=== PATIENT | male | born 1945 | race Caucasian/White ===

== ENCOUNTER 2018-03-29 00:41 | Emergency (ER) | payer MEDICARE ==
[~2018-03-29] VITALS: Ht 177.8 cm; Wt 106.6 kg
[~2018-03-29 00:41] MED LIST: ALLO100 PO; FENO160 PO; METF500 PO; METO25; Prinivil10 MG PO; SERT50 PO; SIMV40 PO; WARF5 PO
[2018-03-29] MEDS ORDERED: OLAN5 PO (01:50)
[2018-03-29] MEDS ORDERED: ATOR20 PO (01:51)
[2018-03-29] MEDS ORDERED: VENL75ER PO (01:51)
[2018-03-29] MEDS ORDERED: METF500C PO (01:52)
[2018-03-29] MEDS ORDERED: WARF5 PO (01:53)
[2018-03-29] MEDS ORDERED: METO25 (01:54)
== END 2018-03-29 02:12 | disposition home or self-care (01) ==
LOC: ER 00:41
DX: S70.11XA Contusion of right thigh, initial encounter (principal); S80.11XA Contusion of right lower leg, initial encounter; E11.9 Type 2 diabetes mellitus without complications; I48.91 Unspecified atrial fibrillation; I10 Essential (primary) hypertension; Z88.0 Allergy status to penicillin; Z88.6 Allergy status to analgesic agent; Z88.8 Allergy status to other drugs, medicaments and biological substances; Z79.899 Other long term (current) drug therapy; Z79.84 Long term (current) use of oral hypoglycemic drugs; Z79.01 Long term (current) use of anticoagulants; Z86.73 Personal history of transient ischemic attack (TIA), and cerebral infarction without residual deficits; W01.0XXA Fall on same level from slipping, tripping and stumbling without subsequent striking against object, initial encounter
CPT/HCPCS: 99282

== ENCOUNTER 2018-11-20 14:51 | Observation (INO) | payer MEDICARE ==
[~2018-11-20] VITALS: Ht 177.8 cm; Wt 106.6 kg
[~2018-11-20 14:51] MED LIST changes: +ATOR20 PO; +METF500C PO; +OLAN7.5 PO; +VENL150ER PO
[2018-11-20] MEDS ORDERED: GLIM2 PO (15:22)
[2018-11-20 15:31] LABS: BASOPHILS ABSOLUTE AUTO 0.03 K/mm3 (0.00-0.23); BASOPHILS PERCENT AUTO 0 % (0-2); EOSINOPHILS ABSOLUTE AUTO 0.13 K/mm3 (0.00-0.68); EOSINOPHILS PERCENT AUTO 2 % (0-6); Hematocrit 48.3 % (37.0-53.0); Hemoglobin 15.8 g/dL (13.5-17.5); IMMATURE GRAN ABSOLUTE AUTO 0.02 K/mm3 (0.00-0.10); IMMATURE GRAN PERCENT AUTO 0 % (0-1); LYMPHOCYTES ABSOLUTE AUTO 1.12 K/mm3 (0.84-5.20); LYMPHOCYTES PERCENT AUTO 15 % (21-46); MONOCYTES ABSOLUTE AUTO 0.58 K/mm3 (0.16-1.47); MONOCYTES PERCENT AUTO 8 % (4-13); Mean Corpuscular HGB 30.9 pg (26.0-34.0); Mean Corpuscular HGB Conc 32.7 g/dL (31.5-36.5); Mean Corpuscular Volume 95 fL (80-100); NEUTROPHILS ABSOLUTE AUTO 5.68 K/mm3 (1.96-9.15); NEUTROPHILS PERCENT AUTO 75 % (41-73); Platelet Count 198 K/mm3 (150-400); RDW Standard Deviation 45.5 fL (35.1-46.3); Red Blood Cell Count 5.11 M/mm3 (4.30-5.90); White Blood Cell Count 7.56 K/mm3 (4.00-11.30)
[2018-11-20 15:58] LABS: Alanine Aminotransfer (ALT/SGP 33 U/L (12-78); Albumin, Blood 3.8 g/dL (3.4-5.0); Albumin/Globulin Ratio 1.2 (0.8-1.8); Alk Phos 86 U/L (50-136); Anion Gap 6 mmol/L (6-16); Aspartate Aminotrans (AST/SGOT 18 U/L (12-37); Bilirubin, Total 0.7 mg/dL (0.1-1.0); Blood Urea Nitrogen 17 mg/dL (8-24); Bun/Creatinine Ratio 33.3 (12.0-20.0); CO2, Blood 33 mmol/L (21-32); Calcium, Blood 9.2 mg/dL (8.5-10.1); Chloride, Blood 104 mmol/L (98-108); Creatinine, Blood 0.51 mg/dL (0.60-1.20); Globulin, Blood 3.2 g/dL (2.2-4.0); Glomerular Filtration Rate >60 (60-); Glucose, Blood 231 mg/dL (70-99); Potassium, Blood 3.9 mmol/L (3.5-5.5); Sodium, Blood 143 mmol/L (136-145); Troponin I <0.015 ng/mL (0.000-0.040)
[2018-11-20 16:15] LABS: International Normalized Ratio 1.96; Prothrombin Time Results 19.5 Sec (9.7-11.5)
[2018-11-20] MEDS ORDERED: DONEPEZIL HCL5 M1 PO (16:56)
[2018-11-20] MEDS ORDERED: GLIM4 PO (16:59)
[2018-11-20] MEDS ORDERED: WARF1 PO (17:20)
[2018-11-20] MEDS ORDERED: METO25 PO (17:25)
[2018-11-20] MEDS ORDERED: FISH OIL 1,001000 MG PO (17:47)
[2018-11-20] MEDS ORDERED: ASCO500 PO (17:48)
[2018-11-20] MEDS ORDERED: ACETAMINOPHEN500 MG PO (17:48)
[2018-11-20] MEDS ORDERED: CHOL10002 PO (17:52)
[2018-11-20] MEDS ORDERED: SENN187 PO (18:00)
[2018-11-20] MEDS ORDERED: CYAN500 PO (18:03)
[2018-11-21 03:27] LABS: International Normalized Ratio 2.07; Prothrombin Time Results 20.5 Sec (9.7-11.5)
[2018-11-21] MEDS ORDERED: CLOP75 PO (12:19)
== END 2018-11-21 12:57 | disposition home or self-care (01) ==
LOC: ER 14:51 → MEDS 14:52 → ENPENDDIS 11-21 11:56 → MEDS 11-21 12:57
PROVIDERS: Nurse Practitioner Acute Care; Physician Assistant; ADMIT Family Medicine
DX: R07.9 Chest pain, unspecified (principal); I48.2 Chronic atrial fibrillation; E11.9 Type 2 diabetes mellitus without complications; F02.80 Dementia in other diseases classified elsewhere, unspecified severity, without behavioral disturbance, psychotic disturbance, mood disturbance, and anxiety; I10 Essential (primary) hypertension; G30.9 Alzheimer's disease, unspecified; F32.9 Major depressive disorder, single episode, unspecified; M10.9 Gout, unspecified; Z88.8 Allergy status to other drugs, medicaments and biological substances; Z86.73 Personal history of transient ischemic attack (TIA), and cerebral infarction without residual deficits; Z79.899 Other long term (current) drug therapy; Z88.6 Allergy status to analgesic agent; Z88.0 Allergy status to penicillin
CPT/HCPCS: 36415; 71046; 80053; 82947; 83735; 84484; 85025; 85610; 93005; 93010; 99285-25; G0378; J7030

== ENCOUNTER 2018-11-28 14:28 | Observation (INO) | payer MEDICARE ==
[~2018-11-28] VITALS: Ht 165.1 cm; Wt 99.3 kg
[~2018-11-28 14:28] MED LIST changes: +ACETAMINOPHEN500 MG PO; +ASCO500 PO; +CHOL10002 PO; +CLOP75 PO; +CYAN500 PO; +DONEPEZIL HCL5 M1 PO; +FISH OIL 1,001000 MG PO; +GLIM2 PO; +GLIM4 PO; +METO25 PO; +SENN187 PO; +WARF1 PO
[2018-11-28] MEDS ORDERED: ATOR20 PO (14:33)
[2018-11-28] MEDS ORDERED: ALLO100 PO (14:33)
[2018-11-28] MEDS ORDERED: Prinivil10 MG PO (14:33)
[2018-11-28] MEDS ORDERED: METFORMIN HCL500 MG PO (14:34)
[2018-11-28] MEDS ORDERED: METO25 PO (14:36)
[2018-11-28] MEDS ORDERED: Jantoven1 MG PO (14:36)
[2018-11-28] MEDS ORDERED: Jantoven5 MG PO (14:36)
[2018-11-28] MEDS ORDERED: GLIM2 PO ×3 (14:37→20:54)
[2018-11-28] MEDS ORDERED: OLAN7.5 PO (14:38)
[2018-11-28] MEDS ORDERED: VENL150ER PO (14:38)
[2018-11-28] MEDS ORDERED: CHOL10002 PO (14:39)
[2018-11-28] MEDS ORDERED: VITAMIN C500 M1 PO (14:40)
[2018-11-28] MEDS ORDERED: VITAMIN B122500 MCG PO (14:40)
[2018-11-28] MEDS ORDERED: FIBER GUMMIES2 GM PO (14:41)
[2018-11-28] MEDS ORDERED: GNP STOOL SOFT PO (14:42)
[2018-11-28] MEDS ORDERED: FISH OIL 1,2001 EACH PO (14:42)
[2018-11-28] MEDS ORDERED: ASPI81CH PO (15:19)
[2018-11-28] MEDS ORDERED: DONE5 PO (15:19)
[2018-11-28 16:09] LABS: BASOPHILS ABSOLUTE AUTO 0.02 K/mm3 (0.00-0.23); BASOPHILS PERCENT AUTO 0 % (0-2); EOSINOPHILS ABSOLUTE AUTO 0.12 K/mm3 (0.00-0.68); EOSINOPHILS PERCENT AUTO 2 % (0-6); Hematocrit 44.4 % (37.0-53.0); Hemoglobin 14.7 g/dL (13.5-17.5); IMMATURE GRAN ABSOLUTE AUTO 0.01 K/mm3 (0.00-0.10); IMMATURE GRAN PERCENT AUTO 0 % (0-1); LYMPHOCYTES ABSOLUTE AUTO 0.82 K/mm3 (0.84-5.20); LYMPHOCYTES PERCENT AUTO 13 % (21-46); MONOCYTES ABSOLUTE AUTO 0.54 K/mm3 (0.16-1.47); MONOCYTES PERCENT AUTO 9 % (4-13); Mean Corpuscular HGB 30.9 pg (26.0-34.0); Mean Corpuscular HGB Conc 33.1 g/dL (31.5-36.5); Mean Corpuscular Volume 94 fL (80-100); Mean Platelet Volume 10.1 fL (9.1-12.4); NEUTROPHILS ABSOLUTE AUTO 4.85 K/mm3 (1.96-9.15); NEUTROPHILS PERCENT AUTO 76 % (41-73); Platelet Count 191 K/mm3 (150-400); RDW Coefficient Variation 12.8 % (11.7-14.2); RDW Standard Deviation 44.4 fL (35.1-46.3); Red Blood Cell Count 4.75 M/mm3 (4.30-5.90); White Blood Cell Count 6.36 K/mm3 (4.00-11.30)
[2018-11-28 16:37] LABS: Alanine Aminotransfer (ALT/SGP 34 U/L (12-78); Albumin, Blood 3.5 g/dL (3.4-5.0); Albumin/Globulin Ratio 1.1 (0.8-1.8); Alk Phos 78 U/L (50-136); Anion Gap 6 mmol/L (6-16); Aspartate Aminotrans (AST/SGOT 24 U/L (12-37); Bilirubin, Total 0.4 mg/dL (0.1-1.0); Blood Urea Nitrogen 20 mg/dL (8-24); Bun/Creatinine Ratio 45.4 (12.0-20.0); CO2, Blood 30 mmol/L (21-32); Calcium, Blood 9.2 mg/dL (8.5-10.1); Chloride, Blood 106 mmol/L (98-108); Creatinine, Blood 0.44 mg/dL (0.60-1.20); Ethanol (Alcohol), Blood, Med <3 mg/dL; Globulin, Blood 3.1 g/dL (2.2-4.0); Glomerular Filtration Rate >60 (60-); Glucose, Blood 180 mg/dL (70-99); Potassium, Blood 3.7 mmol/L (3.5-5.5); Salicylate <1.7 mg/dL (2.8-20.0); Sodium, Blood 142 mmol/L (136-145); Total Protein, Blood 6.6 g/dL (6.4-8.2)
[2018-11-28 16:41] LABS: Acetaminophen, Random <2.0 ug/mL (10.0-30.0)
[2018-11-28 17:44] LABS: Source, Urine Catheter
[2018-11-28 17:53] LABS: Appearance, Urine Clear (Clear); Bilirubin, Urine Neg (Neg); Blood, Urine 2+ (Neg); Color, Urine Yellow (P-Yellow); Glucose Qualitative, Urine 4+ (Neg); Ketones, Urine 1+ (Neg); Leukocyte Esterase, Urine 1+ (Neg); Nitrite, Urine Neg (Neg); Protein, Urine 3+ (Neg); Urobilinogen, Urine 2+ (Normal)
[2018-11-28 18:08] LABS: Amorphous Light (0-Heavy); Bacteria Not Seen /hpf; Mucus Mod (0-Heavy); Squamous Epithelial Cells Rare /hpf (Few)
[2018-11-28 18:35] LABS: U Amphetamine Screen Not Detected; U Barbituate Screen Not Detected; U Benzodiazapine Screen Not Detected; U Cannabinoids Screen Not Detected; U Cocaine Screen Not Detected; U Methadone Screen Not Detected; U Methamphetamine Screen Not Detected; U Opiates Screen Not Detected; U Phencyclidine Screen Not Detected
[2018-11-28 18:36] LABS: U Buprenorphine Screen Not Detected; U Oxycodone Screen Not Detected; U Propoxyphene Screen Not Detected
[2018-11-29 16:37] LABS: International Normalized Ratio 1.37; Prothrombin Time Results 14.1 Sec (9.7-11.5)
[2018-12-01 13:07] LABS: International Normalized Ratio 1.48; Prothrombin Time Results 15.1 Sec (9.7-11.5)
[2018-12-02 11:06] LABS: International Normalized Ratio 1.58; Prothrombin Time Results 16.1 Sec (9.7-11.5)
[2018-12-03 05:51] LABS: International Normalized Ratio 1.62; Prothrombin Time Results 16.4 Sec (9.7-11.5)
[2018-12-03 16:21] LABS: BASOPHILS ABSOLUTE AUTO 0.04 K/mm3 (0.00-0.23); BASOPHILS PERCENT AUTO 1 % (0-2); EOSINOPHILS ABSOLUTE AUTO 0.32 K/mm3 (0.00-0.68); EOSINOPHILS PERCENT AUTO 4 % (0-6); Hematocrit 45.3 % (37.0-53.0); IMMATURE GRAN ABSOLUTE AUTO 0.03 K/mm3 (0.00-0.10); IMMATURE GRAN PERCENT AUTO 0 % (0-1); LYMPHOCYTES ABSOLUTE AUTO 1.38 K/mm3 (0.84-5.20); LYMPHOCYTES PERCENT AUTO 17 % (21-46); MONOCYTES ABSOLUTE AUTO 0.84 K/mm3 (0.16-1.47); MONOCYTES PERCENT AUTO 10 % (4-13); Mean Corpuscular HGB 31.4 pg (26.0-34.0); Mean Corpuscular HGB Conc 33.1 g/dL (31.5-36.5); Mean Corpuscular Volume 95 fL (80-100); Mean Platelet Volume 9.8 fL (9.1-12.4); NEUTROPHILS ABSOLUTE AUTO 5.49 K/mm3 (1.96-9.15); NEUTROPHILS PERCENT AUTO 68 % (41-73); Platelet Count 196 K/mm3 (150-400); RDW Coefficient Variation 12.8 % (11.7-14.2); RDW Standard Deviation 44.5 fL (35.1-46.3); Red Blood Cell Count 4.77 M/mm3 (4.30-5.90)
[2018-12-03 16:39] LABS: Alanine Aminotransfer (ALT/SGP 31 U/L (12-78); Albumin, Blood 3.3 g/dL (3.4-5.0); Alk Phos 78 U/L (50-136); Anion Gap 3 mmol/L (6-16); Aspartate Aminotrans (AST/SGOT 28 U/L (12-37); Bilirubin, Total 0.6 mg/dL (0.1-1.0); Blood Urea Nitrogen 13 mg/dL (8-24); CO2, Blood 33 mmol/L (21-32); CPK Creatine Kinase 120 U/L (39-308); Calcium, Blood 9.4 mg/dL (8.5-10.1); Chloride, Blood 105 mmol/L (98-108); Creatinine, Blood 0.54 mg/dL (0.60-1.20); Globulin, Blood 3.4 g/dL (2.2-4.0); Glomerular Filtration Rate >60 (60-); Glucose, Blood 183 mg/dL (70-99); Potassium, Blood 4.3 mmol/L (3.5-5.5); Sodium, Blood 141 mmol/L (136-145); Total Protein, Blood 6.7 g/dL (6.4-8.2)
[2018-12-03 16:49] LABS: Bicarbonate Venous 30.4 mmol/L (24.0-30.0); PCO2 Venous 56.6 mmHg (38-42); PO2 Venous 50.5 mmHg (38-42); pH Blood Venous 7.39 (7.34-7.37)
--- NOTE | 2018-12-03 19:16 | NUR ---
SHIFT SUMMARY ED ADMIT AT DINNERTIME. PATIENT AND FAMILY ORIENTED TO ROOM. PATIENT DENIES NAUSEA AND SHORTNESS OF BREATH, TYLENOL GIVEN FOR PAIN IN FOOT. PATIENT DROWSY AND NEEDS PROMPTING TO EAT OR TAKE MEDICATION. REPORT GIVEN TO BEVERLY FERNANDEZ.
[2018-12-04 05:02] LABS: BASOPHILS ABSOLUTE AUTO 0.04 K/mm3 (0.00-0.23); BASOPHILS PERCENT AUTO 1 % (0-2); EOSINOPHILS PERCENT AUTO 6 % (0-6); Hematocrit 46.1 % (37.0-53.0); Hemoglobin 15.1 g/dL (13.5-17.5); IMMATURE GRAN ABSOLUTE AUTO 0.02 K/mm3 (0.00-0.10); IMMATURE GRAN PERCENT AUTO 0 % (0-1); LYMPHOCYTES ABSOLUTE AUTO 1.29 K/mm3 (0.84-5.20); LYMPHOCYTES PERCENT AUTO 19 % (21-46); MONOCYTES ABSOLUTE AUTO 0.79 K/mm3 (0.16-1.47); MONOCYTES PERCENT AUTO 12 % (4-13); Mean Corpuscular HGB 30.9 pg (26.0-34.0); Mean Corpuscular HGB Conc 32.8 g/dL (31.5-36.5); Mean Corpuscular Volume 94 fL (80-100); Mean Platelet Volume 9.4 fL (9.1-12.4); NEUTROPHILS ABSOLUTE AUTO 4.23 K/mm3 (1.96-9.15); NEUTROPHILS PERCENT AUTO 62 % (41-73); Platelet Count 186 K/mm3 (150-400); RDW Coefficient Variation 12.8 % (11.7-14.2); RDW Standard Deviation 43.8 fL (35.1-46.3); Red Blood Cell Count 4.89 M/mm3 (4.30-5.90); White Blood Cell Count 6.77 K/mm3 (4.00-11.30)
[2018-12-04 05:15] LABS: International Normalized Ratio 1.59; Prothrombin Time Results 16.2 Sec (9.7-11.5)
--- NOTE | 2018-12-04 05:21 | NUR ---
SHIFT SUMMARY PT COMBATIVE, AGITATED, AND TRYING TO GET UP OUT OF BED AT BEGINNING OF SHIFT. PT STRIKING OUT AND KICKING AT STAFF, SWINGING LEGS OVER THE SIDE RAILS. PT HIT DIRECTOR OF GIFT PLANNING IN STOMACH WITH FIST. PT PUT IN TAMANNA VEST AND 4 POINT SOFT WRIST RESTRAINTS, ORDER RECIEVED. IV HALDOL ALSO GIVEN PT SPITTING OUT MEDS AT NURSE. PT INCONTINENT OF URINE AND BECOMES AGITATED AND COMBATIVE WITH EACH BRIEF CHANGE. IV NS INFUSING PER PUMP AT 75ML/HR WITHOUT DIFFICULTY. CMS AND SKIN ASSESSED EVERY 2 HOURS. WILL CONTINUE TO MONITOR.
[2018-12-04 05:29] LABS: Anion Gap 2 mmol/L (6-16); Blood Urea Nitrogen 16 mg/dL (8-24); CO2, Blood 35 mmol/L (21-32); Calcium, Blood 8.9 mg/dL (8.5-10.1); Chloride, Blood 105 mmol/L (98-108); Creatinine, Blood 0.55 mg/dL (0.60-1.20); Glomerular Filtration Rate >60 (60-); Glucose, Blood 157 mg/dL (70-99); Potassium, Blood 3.8 mmol/L (3.5-5.5); Sodium, Blood 142 mmol/L (136-145)
--- NOTE | 2018-12-04 09:10 | NUR ---
LOWER EXTREMITY RESTRAINTS REMOVED PT CONTINUES TO SLEEP SOUNDLY. PT LOWER EXTREMITY RESTRAINTS REMOVED AT 0900 FOR A TRAIL. WILL CONTINUE TO MONITOR.
--- NOTE | 2018-12-04 13:03 | NUR ---
PT AWAKE PT AWAKE, BUT REMAINS SLEEPY. PT ABLE TO VOID A SMALL AMOUNT IN THE URINAL. PT AGREED TO TAKE ORAL MEDICATIONS FROM THIS AM IN APPLESAUCE WITHOUT PROBLEMS. PT REFUSED ANYMORE FOOD. PT AGREED TO TAKE A BEDBATH LATER TODAY. WILL CONTINUE TO MONITOR.
--- NOTE | 2018-12-04 13:39 | NUR ---
WRIST RESTRAINTS REMOVED. PT WRIST RESTRAINTS REMOVED AT 1341. PT AWAKE, BUT STATES HE IS DROWSY. PT PARTICIPATED IN BEDBATH WITH AIDES. PT RESTING NOW. PT COOPERATIVE SINCE HE AWOKEN. WILL CONTINUE TO MONITOR.
--- NOTE | 2018-12-04 17:16 | NUR ---
PT RESTRAINTS REMOVED PT NO LONGER NEEDING RESTRAINTS. PT COOPERATIVE & APPROPPRIATE IN ROOM. TALKING WITH FAMILY. PT CONTINUES TO BE DROWSY. WILL CONTINUE TO MONITOR.
--- NOTE | 2018-12-04 17:18 | NUR ---
SHIFT SUMMARY PT NO OUT OF RESTRAINTS. PT LETHARGIC MOST THE DAY. PT AWAKE & TALKING WITH FAMILY NOW. PT REFUSED BREAKFAST & LUNCH DUE TO DROWSINESS. PT GIVEN SNACK NOW & STATES HE IS HUNGRY FOR DINNER. PT ABLE TO PARTICIPATE IN CROSS WORD PUZZLE WITH FAMILY & FFED HIMSELF MANUEL. NO OTHER CHANGES IN ASSESSMENT AT THIS TIME. VSS. WILL CONTINUE TO MONITOR UNTIL TURNOVER IS COMPLETE.
--- NOTE | 2018-12-04 17:43 | NUR ---
URINARY RETENTION PT HAVING DIFFICULTY VOIDING. PT STATES HE FEELS LIKE HE HAS TO GO BUT IS ONLY ABLE TO VOID LITTLE BITS WHEN BEARING DOWN. PT BLADDER SCANNED AFTER 100ML VOID WITH [address] LUNA NOTIFIED OF THIS. NO OTHER CHANGES IN ASSESSMENT
[2018-12-05 05:40] LABS: International Normalized Ratio 2.01
--- NOTE | 2018-12-05 05:55 | NUR ---
NOC SHIFT SUMMARY PT HAS BEEN MOSTLY PLEASANT AND COOPERATIVE WITH CARE THIS NIGHT THOUGH HE HAS BEEN ANXIOUS. HE SLEPT A GOOD PORTION OF THE NIGHT. HE DOES SEEM TO BE BECOMING MORE ANXIOUS OVER THE PAST HOUR OR SO. HE HAS PULL OUT TWO IV'S TH NIGHT. STARTED HITTING HIMSELF AT 0600. CALLED TO DR. PECK OBTAINED ORDER FOR RESTRAINTS TO PROTECT BOTH PT AND LINES. PT TOLERATING RESTRAINTS WELL. CONTINUES TO BE ORIENTED TO SELF AND SURROUNDINGS. WILL CONTINUE TO MONITOR.
--- NOTE | 2018-12-05 14:09 | NUR ---
PT AGITATED, ANXIOUS. HAVING DIFFICULTY WITH BM, PRN SEROQUEL AND DULCOLAX SUPPOSITORY GIVEN. PT HAD LARGE BM. PT'S IS AT BEDSIDE AT THIS TIME. PT IS CALM AND PLEASANT. RESTRAINTS REMOVED FROM BUE FOR COMFORT AND MOBILITY. WILL REASSESS NEED FOR RESTRAINT.
--- NOTE | 2018-12-05 14:55 | NUR ---
PT REQUESTED FEELING THOUGH HE WAS GOING TO "BLOW UP" AND THAT HE WAS ANXIOUS. PT REQUEST TO BE RESTRAINED, HE WAS HITTING HIMSELF IN THE FACE. PT RESTRAINED WITH BUE SOFT RESTRAINTS. WILL GIVE PRN SEROQUEL. THIS WILL THE SECOND DOSE TODAY.
--- NOTE | 2018-12-05 18:37 | NUR ---
SHIFT SUMMARY. A&OX3, PLEASANT, FOLLOWS COMMANDS, NO AGRESSIVE BEHAVIOR TODAY. PT APPEARED TO ANXIETY TWICE THIS SHIFT, DIAPHORETIC, TACHYPNEIC, RESOLVED WITH PRN SEROQUEL. PT'S DAUGHTER AND CONCERNED ABOUT PT NOT RECIEVED EFFEXOR, DR. LUNA NOTIFIED AND SHE PLACED NEW ORDERS. PT DENIES PAIN, SOB, N/V. REPORTS THAT PT HAS CHRONIC PAIN TO L FOOT THAT HE TAKE APAP 650MG PO BID AT HOME. DOSE GIVEN ONCE NOTIFIED BY , PT CONTINUED TO DENY PAIN. GOOD MEAL AND FLUID INTAKE. LARGE BM TODAY, PT HAD SOME DIFFICULTY, STOOL WAS HARD, PRN SUPPOSITORY GIVEN WITH GOOD RESULT. NO OTHER CHANGES.
--- NOTE | 2018-12-06 00:31 | NUR ---
CONFIRMED REMOTE MONITORING IS WATCHING PT.
--- NOTE | 2018-12-06 03:54 | NUR ---
PT CONTINUES TO BE ANXIOUS AND PULLS AT LINES, ATTEMPTS TO GET OUT OF BED, AND SCRATCHES HIMSELF. RESTRAINTS ORDER RENEWED BY DR. KRISHNAMURTHY
[2018-12-06 05:26] LABS: International Normalized Ratio 2.22; Prothrombin Time Results 21.9 Sec (9.7-11.5)
--- NOTE | 2018-12-06 05:45 | NUR ---
NOC SHIFT SUMMARY PT COOPERATIVE WITH CARE. HAS BEEN ANXIOUS THIS NIGHT. PULLING AT RESTRAINTS AND TRYING TO GET OUT OF BED. HE WAS ALSO SCRATCHING HIMSELF AT HIS LEFT FRONT HIP AREA. I HAVE SHORTENED RESTRAINT LINE, MADE SURE THE BLANKET WAS OVER HIS BODY AND UNDER HIS HANDS AND COVERED SCRATCHED AREA WITH A BANDAGE. PT DID NOT DRAW BLOOD BUT HAS A NUMBER OF BRIGHT RED SCRATCHES ON THE SKIN. WAS GIVEN PRN SEROQUEL AT 0138 AND THAT HAS HELPED. PT CURRENTLY APPEARS TO BE SLEEPING LIGHTLY. VSS. CURRENTLY APPEARS IN NO ACUTE DISTRESS. WILL CONTINUE TO MONITOR.
--- NOTE | 2018-12-06 08:52 | NUR ---
0825 PT WITH WHEEZES THROUGHOUT. PT PLEASANT AND COOPERATIVE. SPOKE WITH DR. LUNA, RECIEVED ORDERS TO STOP IV FLUIDS, D/C IV, AND D/C RESTRAINTS. RESTRAINTS D/C'D AT 0830, IV REMOVED. PT CALM, SITTING IN BED WATCHING TV AT THIS TIME.
--- NOTE | 2018-12-06 17:52 | NUR ---
SHIFT SUMMARY. A&OX2, PT HAD DIFFICULTY WITH DATE, ALTHOUGH KNEW MONTH AND DAY. PT WITH INTERMITTENT LEVELS OF CONFUSION. PT HAD SEVERAL PANIC LIKE ANXIETY ATTACKS THIS MORNING, RESOLVED WITH PRN SEROQUEL AND VISIT WITH . RESTRAINTS D/C'D THIS AM AT 0830, BED ALARM IN USE. PT NOT AGGRESSIVE TOWARDS STAFF ALTHOUGH WAS OBSERVED HITTING SIDE RAIL AND ATTEMPTING TO SLAM HAND IN BEDSIDE DRAWER. DRAWER REMOVED. PT STOPPED HITTING THINGS WHEN ASKED. PT HAS MIXED INCONTINENCE AND CONTINENCE, CARE PROVEDED. BED BATH THIS AM. TODAY. [facility] CALLED AND SAID THEY WOULD NOT ACCEPT THE PT, Maty FERGUSON, RN WITH CM NOTIFIED. PT DENIES SOB, N/V. GOOD MEAL INTAKE. PT REPORTS PAIN TO TONGUE R/T WAHT APPEARS TO BE AN OPEN AREA FROM JULISSA BITING, COLD COMPRESSES, ORAL CARE PROVIDED. NO OTHER CHANGES.
--- NOTE | 2018-12-07 05:18 | NUR ---
Rn summary: Patient is alert, directable, He remembers his birthdate and his wedding aniversary and how long he has been . During the night he would wake up and not know where he was. Pt has been cooperative with no outbursts. Pt did try and get out of bed 2-3 times. He was up x1 to the BSC to void. Pt did have a large BM, lg misha firm and brown. This am pt with increasing restlessness and anxiety, started shaking bed rail. Medicated with 25mg of serroquel and a stool softener. Pt has required close observation and frequent reassurance. Bed alarm is on and call light in reach.
[2018-12-07 05:29] LABS: International Normalized Ratio 2.1; Prothrombin Time Results 20.8 Sec (9.7-11.5)
--- NOTE | 2018-12-07 08:33 | NUR ---
PATIENTS ATTENDS WERE CHECKED AND THEY WERE CLEAN AND DRY. PATIENT WAS REPOSITIONED.
--- NOTE | 2018-12-07 15:57 | NUR ---
PT IS ALERT, ORIENTED TO SELF AND FAMILY, THE PT APPEARS TO BE BREATHING EASILY ON RA AT THIS TIME, THE PT HAS AN OCCASIONAL COUGH, THE PT WAS MEDICATED WITH TYLENOL THIS AM FOR REPORTED FOOT PAIN, THIS AM I WITNESSED THE PT HITTING HIMSELF IN THE FOREHEAD WITH THE CALL LIGHT, THE CALL LIGHT WAS TAKEN AWAY AT THAT TIME AND SET ASSIDE, THE PT WAS OFFERED TO GET UP INTO THE CHAIR TODAY, HOWEVER DECLINED, THE PT DID GET UP TO THE BSC HOWEVER, PTS WAS AT THE BEDSIDE FOR SEVERAL HOURS TODAY, BED IN LOW POSITION, BED ALARM ON WILL CONTINUE TO MONITOR AND ASSESS FOR CHANGES
--- NOTE | 2018-12-07 17:25 | NUR ---
PATIENTS ATTENDS WERE CHECKED AND THEY WERE CLEAN AND DRY.
--- NOTE | 2018-12-08 04:14 | NUR ---
Rn summary: Patient is cooperative but confused. He has been up to the BSC several times to void. No BM this shift. Pt did rest for about 1.5 hours after evening meds. By 0230 pt was restless and hitting his chest saying " He was bad and needed punished". Pt reassured he was not bad, that he was a little confused. Pt medicated with aditional 25mg of seroquel and he has rested again for about 1.5 hours. Pt is able give himself fluids from bedside table. Bed alarm is on for safety. Call light is in reach.
[2018-12-08 06:01] LABS: International Normalized Ratio 2.3; Prothrombin Time Results 22.6 Sec (9.7-11.5)
--- NOTE | 2018-12-08 17:20 | NUR ---
PT IS A/OX3 PLEASANT AND COOPERATIVE, THE PT IS UP WITH MINIMAL ASSIST TO THE CHAIR AND TO THE BATHRIOOM, THE PT WAS UP WALKING THIS AFTERNOON USEING THE FWW APPROPRIATLY, THE PT APPEARS TO BE [id number] EASILY ON RA, THE PT WAS MEDICATED WITH TYLENOL X1 TODAY FOR LEFT FOOT PAIN, THE PTS WAS AT THE BEDSIDE TODAY, CALL LIGHT IN REACH, WILL CONTINUE TO MONITOR AND ASSESS FOR CHANGES
--- NOTE | 2018-12-09 04:04 | NUR ---
Rn summary: Patient was sitting up in chair the beginning of shift. Pt is calm and cooperative. points out the bump on rt tan which is new. Pt also has 3+ pitting edema to left ankle and foot. Redness from this am is gone. Pt is ambulating better, uses walker. He does still need prompts. Pt has voided several times 100-150cc. Pt is slow to respond at times, he knows he is in the hospital and knows all the people in his family picture book. Pt has not tried to get out of bed tonight without assist. He has had no self hitting. Pt has been able to rest on and off. Bed alarm on. Call light in reach.
[2018-12-09 06:01] LABS: International Normalized Ratio 2.19; Prothrombin Time Results 21.6 Sec (9.7-11.5)
--- NOTE | 2018-12-09 18:19 | NUR ---
SUMMARY- PT ALERT TO SELF AND PLACE, PRESIDENT BUT THOUGHT IT WAS 2007. PT AT TIMES ANXIOUS AND IMPULSIVE- SETS OFF BED ALARM AND CHAIR ALARM FREQ DESPITE REMINDERS TO USE CALL LIGHT. PT STEADY ON FEET WITH OCCASIONAL MIS-STEP. SBA WITH WALKER TO BATHROOM AND AROUND ROOM. UP IN CHAIR MOST OF THE DAY WATCHING TV. TOLERATING FOOD AND FLUIDS HAS A GOOD APPETITE. FOR THE MOST PART PT PLEASANTLY CONFUSED AND EASILY DIRECTABLE. AT BEDSIDE LUNCH AND DINNER TIME, INVOLVED IN PT'S CARE. PT HAS +2 PEDAL EDEMA. LUNGS CLEAR. DENIES PAIN.
--- NOTE | 2018-12-10 04:46 | NUR ---
SHIFT SUMMARY ALERT, SLOWLY ANSWERS QUESTIONS APPROPRIATELY. IMPULSIVE AND FREQUENTLY EXITS BED/CHAIR. RE-EDUCATED ON USING CALL LIGHT; RESPONSIVE TO EDUCATION. AWARE THAT ALARM GOES OFF WHEN GETTING UP. APPEARED TO REST OFF AND ON THROUGHOUT SHIFT. AND DAUGHTER IN TO VISIT AT BEGINNING OF SHIFT. NOTABLE 1+ EDEMA TO DORSUM OF L FOOT. DENIES PAIN/DISCOMFORT. NO ACUTE CHANGES OVERNIGHT. BED IN LOWEST POSITION. ALARM ON. CALL LIGHT AND BELONGINGS WITHIN REACH. REPORT TO ONCOMING RN.
[2018-12-10 05:33] LABS: Prothrombin Time Results 19.9 Sec (9.7-11.5)
--- NOTE | 2018-12-10 18:41 | NUR ---
SHIFT SUMMARY CONFUSED. COOPERATIVE TODAY. DAUGHTER AND SPOUSE IN ROOM FOR MOST OF SHIFT. OOB TO BATHROOM TOLERATED WELL STANDBY ASSIST X1. INCREASED P.M. DOSE OF SEROQUEL FOR SLEEP. DOPPLER COMPLETED TO LLE. JAIRO VARGAS APPLIED PER FAMILY REQUEST. EATING AND DRINKING WELL. FAMILY CONCERNED ABOUT APPROPRIATE PLACEMENT AFTER HOSPITAL STAY.
--- NOTE | 2018-12-10 23:53 | NUR ---
having trouble staying in bed or in the chair, cooperative but gets back up shortly after being put in bed or the chair.
[2018-12-11 06:07] LABS: International Normalized Ratio 2.07; Prothrombin Time Results 20.5 Sec (9.7-11.5)
--- NOTE | 2018-12-11 07:19 | NUR ---
a and orintated to self and location, for most of the shift he kept getting out of bed, cooperative, room air, call light used properly and immproperly, saline locked, walking rounds completed with returning day shift
--- NOTE | 2018-12-11 09:50 | NUR ---
INCREASED AGITATION REPORTED TO DR. SUÁREZ CALLED BY [facility]ERA TECH-PT PUSHING DINNER FORK AGAINST SKIN CAUSING SUPERFICIAL SMALLWOOD TO SKIN SCANT AMT OF BLOOD NOTED TO LEFT HAND ADJACENT TO THUMB; SITE CARE GIVEN. ALSO FOUND SLAPPING STOMACH REPEATEDLY TALKING ABOUT BEING "CAUGHT IN A FIRE"; PUSHED OVER TRAY TABLE SEVERAL TIMES.
--- NOTE | 2018-12-11 19:30 | NUR ---
SHIFT SUMMARY AGITATION NOTED EARLY IN SHIFT PRIOR TO FAMILY ARRIVING (ROCKING TABLE REPEATEDLY TALKING ABOUT "FINDING THE FIRE", SLAPPING SELF). PRN MED FOR AGITATION EFFECTIVE. STANDBY ASSIST TO BATHROOM. CONTINENT TODAY. EATING, DRINKING AND TAKING MEDICATION WELL. COOPERATIVE WITH ALL CARE. PLAN TO TRANSFER TO [facility] OR OTHER APPROPRIATE FACILITY.
--- NOTE | 2018-12-12 03:44 | NUR ---
SHIFT SUMMARY PT ADMITTED FOR INCREASED AGITATION AND ALTERED LOC. DNR. CARDIAC ADA DIET WITH FOOD IN PAPER AND PLASTIC [place] ONLY DUE TO PT ATTEMPTING TO HARM SELF ON WRISTS WITH METAL FORK PER REPORT. CBG AT AND . HAS GUARDIANSHIP AND LETTER IS IN CHART. COUMADIN FOR DVT PROPHYLAXIS. NO IV ACCESS NEEDED. PER REPORT PT HAS HX OF FRONTAL LOBE STROKE CAUSING BEHAVIOR DISTURBANCES. TAKES MEDICATIONS WHOLE WITH WATER. PT IS A SBA WITH TRANSFERS TO THE . THE PTS DAUGHTER IS A HOSPITAL SHEET MANU[employer]URING SUPERVISOR IN [place] AND THE FAMILY IS LOOKING TO FIND THE BEST POSSIBLE LEVEL OF CARE TO MEET THE PTS NEEDS. THE FAMILY DOES NOT BELIEVE THAT PLACEMENT IN A LONG-TERM CARE FACILITY ALONE WOULD BE SAFE PLACEMENT FOR THE PT DUE TO BEHAVIORAL COMPONENTS AND ATTEMPTS AT SELF HARM. THE PT IS NOTED TO HAVE INCREASED SWELLING TO THE LEFT LEG AND USES JAIRO HOSE DURING THE DAY WHICH FAMILY DID REMOVE YESTERDAY PER REPORT. THE PT DID HAVE A DOPPLER EXAM WHICH WAS NEGATIVE. THE PT HAS BEEN AWAKE OFF AND ON THROUGHOUT THE SHIFT, FREQUENTLY GETTING UP TO USE THE BATHROOM AND REARRANGE ITEMS IN ROOM. THE PT WAS REDIRECTED TO TIME BEING THE MIDDLE OF THE NIGHT AND THE PT RESPONDED WELL AND WENT BACK TO BED. FREQUENT VISUAL CHECKS PT DOES NOT USE CALL LIGHT APPROPRIATELY. NO APPARENT SIGNS OF ACUTE DISTRESS.
[2018-12-12 05:24] LABS: Hematocrit 45.1 % (37.0-53.0); Hemoglobin 14.8 g/dL (13.5-17.5); Mean Corpuscular HGB 30.9 pg (26.0-34.0); Mean Corpuscular HGB Conc 32.8 g/dL (31.5-36.5); Mean Corpuscular Volume 94 fL (80-100); Mean Platelet Volume 9.8 fL (9.1-12.4); Platelet Count 273 K/mm3 (150-400); RDW Coefficient Variation 12.4 % (11.7-14.2); RDW Standard Deviation 42.7 fL (35.1-46.3); Red Blood Cell Count 4.79 M/mm3 (4.30-5.90); White Blood Cell Count 5.67 K/mm3 (4.00-11.30)
[2018-12-12 05:42] LABS: International Normalized Ratio 1.93; Prothrombin Time Results 19.3 Sec (9.7-11.5)
[2018-12-12 05:43] LABS: Anion Gap 4 mmol/L (6-16); Blood Urea Nitrogen 22 mg/dL (8-24); CO2, Blood 35 mmol/L (21-32); Calcium, Blood 9.8 mg/dL (8.5-10.1); Chloride, Blood 99 mmol/L (98-108); Creatinine, Blood 0.63 mg/dL (0.60-1.20); Glomerular Filtration Rate >60 (60-); Glucose, Blood 144 mg/dL (70-99); Potassium, Blood 4.3 mmol/L (3.5-5.5); Sodium, Blood 138 mmol/L (136-145)
--- NOTE | 2018-12-12 15:43 | NUR ---
HE HAS BEEN CALM AND COOPERATIVE TODAY. I DID GIVE HIM A PRN SEOQUEL THIS AM THOUGH BECAUSE HE WAS CLENCHING HIS HANDS VERY TIGHTLY AND MAKING SOME REPETITIVE ARM MOVEMENTS. HE LOOKED STRESSED AT THE TIME. HIS IS HERE WITH HIM. THEY ARE PLAYING A GAME CALLED PASS THE PIGS. SHE ALSO TOOK HIM FOR A RIDE IN THE [employer] TO GET HIM OUT OF THE ROOM FOR 10 MINUTES. HE WAS INCONTINENT OF URINE EARLIER TODAY WHEN HIS URINAL WAS RIGHT IN FRONT OF HIM. HIS TEDS WERE SOILED SO CHANGED TO A NEW PAIR. LAST CBG 251. HE HAS REQUIRED INSULIN BOTH MEALS SO FAR TODAY.
--- NOTE | 2018-12-12 22:42 | NUR ---
PT UP AND DOWN TO BEDSIDE CHAIR OR BED (ALARMS APPLIED--BED AND CHAIR). PT IS ABLE TO AMBULATE TO BATHROOM AND BACK X1 STANDBY ASSIST, GAIT SLOW AND STEADY.
--- NOTE | 2018-12-13 04:59 | NUR ---
73 Y/O MALE WAS NUMEROUS TIMES THROUGHOUT THE EVENING TO AMBULATE AND VOID ON TOILET. PT ALERT AND ORIENTED X 1, ABLE TO FOLLOW VERY SIMPLE VERBAL COMMANDS ONLY. PT DENIES PAIN OR NAUSEA. PTS BED ALARM APPLIED, BED LOW POSITION, CALL LIGHT AT SIDE.
[2018-12-13 05:43] LABS: International Normalized Ratio 1.94; Prothrombin Time Results 19.4 Sec (9.7-11.5)
--- NOTE | 2018-12-13 16:10 | NUR ---
HE IS SITTING IN THE CHAIR WITH THE TV ON. NO COMPLAINTS. HIS LEFT TO SPEND TIME WITH HER SISTER FOR THE AFTERNOON. HE AMBULATED THE [place] WITH A GAITBELT AND 1 ASSIST. HE NEEDS REMINDING TO TAKE BIGGER STEPS AND TO STRAIGHTEN UP. HE PROGRESSIVELY LEANS FORWARD WITH DISTANCE.
--- NOTE | 2018-12-13 17:59 | NUR ---
HE KNOWS PERSON, PLACE AND TIME BUT IS CONFUSED ABOUT A LOT OF THINGS. HE IS PLEASANT AND COOPERATIVE. HE JUST FINISHED DINNER. HE EATS 100% CONSISTENTLY. KNE TEDS ON ALL DAY. 1 ASSIST AMBULATION. HE IS TURNING ME DOWN FOR A WALK NOW AFTER DINNER. I SUGGESTED THEN, THAT HE GO FOR A 2ND WALK IN THE [place] THIS EVENING BEFORE HE GOES TO BED FOR THE NIGHT. VSS. 1 PRN SEROQUEL GIVEN TODAY FOR AGITATION.
--- NOTE | 2018-12-13 18:24 | NUR ---
HE IS AGITATED. HE HAS BEEN HALLUCINATING. SEROQUEL JUST GIVEN. ALSO HIS JUST ARRIVED.
--- NOTE | 2018-12-14 04:49 | NUR ---
SUMMARY: 73 Y/O MALE PATIENT AT BEGINNING SHIFT HAVE MUCH REPETITIVE BEHAVIOR AND DELUSIONAL PARANOID BEHAVIORS WHILE BE UNABLE TO FOLLOW REDIRECTION FROM STAFF. PT BECAME COMBATIVE AND WAS PLACED IN TAMANNA VEST WITH 4 POINT SOFT RESTRAINTS. PT WAS GIVEN ZYPREXA 5MG IM TO LEFT VASTUS LATERALUS FOR AGITATION WHICH DECREASED AGGRESSIVE BEHAVIOR. PTS ALERT TO PERSON ONLY AND MUMBLED IRRATIONAL COMMENTS TO SELF ALL NIGHT. PT APPEARS TO HAVE NO PAIN, NO NAUSEA NOTED. PTS BED ALARM APPLIED, BED LOW POSITION, CALL LIGHT AT SIDE.
[2018-12-14 06:02] LABS: International Normalized Ratio 2.07; Prothrombin Time Results 20.5 Sec (9.7-11.5)
--- NOTE | 2018-12-14 11:34 | NUR ---
1120. PATIENT IS CALM, REDIRECTABLE, SLEEPING ON AND OFF. RESTRAINTS WILL BE REMOVED AT THIS TIME PATIENT IS NOT SHOWING ANY DANGEROUS BEHAVIOR TO STAFF OR HIMSELF. HE IS COMPLIANT WITH CARES. HE STILL REFUSES TO GET DRESSED BUT IS USING A BLANKET A ROBE. HE WILL WALK TO THE RESTROOM ON HIS OWN. CHAIR AND BED ALARM ON . NURSE SITTING BY HIS ROOM. HE HAS HAD NO COMPLAINTS AND ONLY TALKS WITH SPOKEN TO. FAMILY HAD BEEN IN [place] THIS MORNING. WILL CONTINUE TO [facility] AND ADD RESTRAINTS BACK NEEDED.
--- NOTE | 2018-12-14 18:10 | NUR ---
PATIENT WAS CALM THIS SHIFT. RESTRAINTS REMOVED . PATIENT WALKS TO THE RESTROOM .BED AND CHAIR ALARMS STILL IN PLACE. NO AGGRESSION OR AGITATION TOWARD STAFF OR SELF NOTED THIS SHIFT. HE IS PLEASANT AND COOPERATIVE WITH CARES. MOMENTS OF CONFUSION NOTED BUT IS EASILY REDIRECTABLE. NO ACUTE CHANGES.
--- NOTE | 2018-12-15 05:12 | NUR ---
12/15/18 0500 AWAKENED FOR AM LABS. VITALS STABLE. REPOSITIONED Q 2 HOURS WHEN NOT GOTTEN UP FOR VOIDINGS. SLEPT WELL THIS SHIFT. EASILY DIRECTBLE TO BATHROOM,CHAIR OR BED. BED ALARM ON.
[2018-12-15 05:35] LABS: International Normalized Ratio 2.11; Prothrombin Time Results 20.9 Sec (9.7-11.5)
--- NOTE | 2018-12-15 16:17 | NUR ---
PATIENT HAS BEEN CALM ALL DAY. HE SHOWERED THIS MORNING AND ALLOWED STAFF TO GOWN HIM UP. HIS MENTATION IS IMPROVED FROM YESTERDAY. FAMILY BEEN AT BEDSIDE AND IS INVOLVED WITH HIS CARE. HE HAS HAD NO EPISODES OF AGGRESSION . HE HAS HAD NO COMPLAINTS OF PAIN, SOB, OR NV. HIS CONFUSION REMAINS BUT IS MORE ALERT THAN YESTERDAY. CALL LIGHT WITHIN REACH
--- NOTE | 2018-12-16 01:03 | NUR ---
12/16/18 0045 BED ALRM SOUNDED. PT WANTING TO GO TO BATHROOM. RN ASSISTED AND HE VOIDED QS YELLOW URINE. ASSISTED BACK TO BED WITH BED ALARM TURNED ON.
--- NOTE | 2018-12-16 03:17 | NUR ---
12/16/18 0310 RESTLESS AND UP TO BATHROOM X 6 TIMES SINCE 2 AM. VOIDED TWICE. SLIGHTLY AGITATED. SEE MAR FOR MED GIVEN.
[2018-12-16 05:41] LABS: International Normalized Ratio 2.05; Prothrombin Time Results 20.4 Sec (9.7-11.5)
--- NOTE | 2018-12-16 07:31 | NUR ---
12/16/18 0600 Vitals stable. UNEVENTFUL NIGHT. PT PLEASANT AND COOPERATIVE.
--- NOTE | 2018-12-16 17:51 | NUR ---
SHIFT SUMMARY PT A&Ox2, CALM AND COOPERATIVE WITH CARE. CONFUSED AT TIMES. PT SPOUSE AT BEDSIDE DURING SHIFT, ASSIST WITH CARE. NO AGRESSION DURING SHIFT. PT DOESNT USE CALL LIGHT APPROPRIATELY, SETS OFF BED/CHAIR ALARM. PT SBA IN ROOM, SLIGHTLY UNSTEADY AT TIMES. PT DENIES PAIN, SOB AND N/V DURING SHIFT. AWAITING SAFE DISCAHRGE PLAN/PLACEMENT. VSS. NO OTHER ACUTE CHANGES NOTED DURING SHIFT. WILL CONTINUE TO MONITOR UNITL REPORT GIVEN TO ONCOMING RN.
--- NOTE | 2018-12-17 01:31 | NUR ---
PT HAS SET OF BED ALARM OVER TEN TIMES SO FAR TONIGHT. PT HAS STEADY GAIT HOWEVER SOMETIMES STUMBLES AND IS RATHER QUICK. BED EXIT IS TO USE RESTROOM. PT RETURNS TO BED EACH TIME W/O HASSLE. COOPERATIVE. WILL CONT TO MONITOR.
--- NOTE | 2018-12-17 04:23 | NUR ---
SHIFT SUMMARY: PT IS UP AND DOWN SEVERAL TIMES T/O TONIGHT, MAKING TRIPS TO THE BATHROOM. BED ALARM ON FOR SAFETY PT GAIT IS QUICK AND SHUFFLING. PT IS NOT AGGRESIVE OR AGITATED AT ALL TONIGHT, VERY CALM, COOPERATIVE, AND REDIRECTABLE. PT DOES HAVE 1 EPISODE OF ANXIETY, STATES "I FEEL LIKE IM IN A PLASTIC ROOM". THIS WAS EARLY IN THE NIGHT. CALLED PT TO TALK AND CALM DOWN PT. SINCE THEN PT HAS NOT HAD ANXIETY. ADMINISTERED PRN SEROQUEL 1X. WILL CONT TO MONITOR AND PROVIDE CARE UNTIL PRESUMED BY ONCOMING RN.
[2018-12-17 05:57] LABS: International Normalized Ratio 2.17; Prothrombin Time Results 21.4 Sec (9.7-11.5)
--- NOTE | 2018-12-17 19:57 | NUR ---
SHIFT SUMMARY PT A&O TO SELF, FAMILY AND SURROUNDING. PT DOES NOT KNOW THE DATE/TIME, PLACE OR EVENT. PT IRRITABLE AT TIMES. PT TOOK GAITBELTS AND NANETTE BEAR, HITTING THE BEDSIDE TABLE WITH THEM. WHEN STAFF TOOK ITEMS AWAY, PT WOULD ASK IT WHY STAFF WAS SCARED. THIS AFTENOON PT SLAMMING HAND OF CHAIR. MEDICATED WITH PRN SEROQUEL x2. PT DOES NOT CALL APPROPRIATELY, SETS OF CHAIR/BED ALARM OFF. SBA WITH WALKER, PT UP WALKING [place] WITH STAFF. PT DENIES PAIN, SOB AND N/V. PT BP DRIPPED THIS AFTERNOON, BUT UP AGAIN THIS EVENING. OTHER VSS. NO OTHER ACUTE CHANGES NOTED DURING SHIFT. REPORT GIVEN TO ONCOMING RN.
--- NOTE | 2018-12-17 20:12 | NUR ---
BP 87/57. WILL RECHECK BP AND CALL HOSPITALIST IF BP NOT IMPROVED.
--- NOTE | 2018-12-17 21:19 | NUR ---
BP IMPROVED AT RECHECK : 97/55
--- NOTE | 2018-12-18 00:59 | NUR ---
PT WITH INCREASED CONFUSION AND IMPULSIVITY. CALLING OUT FOR AND MAKES EXIT FOR DOOR SEVERAL TIMES SO FAR TONIGHT. PT IS HIGH FALL RISK c UNSTEADY GAIT. HAVE ADMINISTERED SCHEDULED SEROQUEL WELL PRN SEROQUEL
--- NOTE | 2018-12-18 01:30 | NUR ---
SEVERAL MORE BED EXITS SINCE LAST NOTE. PT EXITS BED AND ATTEMPTS TO EXIT ROOM. REORIENTABLE BUT RESISTIVE, NOT AGGRESSIVE AT THIS POINT
--- NOTE | 2018-12-18 03:36 | NUR ---
PT PLACED IN TAMANNA VEST D/T CONSTANT BED EXITS AND HIGH FALL RISK. ORDERED OBTAINED FROM DR SAUNDERS. PT RESPONDS WELL TO TAMANNA VEST PLACEMENT FOR A BIT, BUT RIPS TAMANNA IN HALF. APPLIED NEW TAMANNA AND CLOSE MONITORING. PT IS NOW CALLING OUT "PLEASE SOMEONE HELP ME" AND WHEN ASKED WHAT HE NEEDS HE DOES NOT RESPOND.
[2018-12-18 06:25] LABS: International Normalized Ratio 1.99; Prothrombin Time Results 19.8 Sec (9.7-11.5)
--- NOTE | 2018-12-18 13:20 | NUR ---
ISTRATE IN TO SEE PT, SPOUSE AT BEDSIDE.
--- NOTE | 2018-12-18 16:39 | NUR ---
SHIFT SUMMARY- PT A/O TO PERSON AND PLACE. PT DENIES ANY COMPLAINTS T/O THE SHIFT. PT HAS BEEN COOPERATIVE T/O THE SHIFT. PT HAS BEEN LESS IRRITABLE AND AGITATED TODAY THAN YESTERDAY. SPOUSE IN DURING THE AFTERNOON AND TOOK PT ON A WALK AND PLAYED GAMES WITH PT. TAMANNA WOLFF'Kayden THIS AM. PT UP AMBULATING IN ROOM AND V[place] WITH SBA AND FWW, PT DOES NOT CALL FOR ASSISTANCE. PT AWAITING PLACEMENT AT [facility]ITHER [facility] OR [facility] WHEN BED AVAILABLE. BP OF 97/59 THIS AFTERNOON, LISINOPRIL DECREASED. NO OTHER ACUTE CHANGES THIS SHIFT.
--- NOTE | 2018-12-19 05:04 | NUR ---
SHIFT SUMMARY PT HAD GOOD SHIFT. PT REMAINED AGREEABLE T/O SHIFT. PT FOLLOWED COMMANDS EASILY. PT DID HAVE SEVERAL PERIODS WHERE HE SET OFF BED ALARM TO GO TO BATHROOM. PT WAS EDUCATED ON USE OF CALL LIGHT BUT DID NOT USE IT. PT BED ALARM REMAINED ARMED AT ALL TIMES. PT HAS A SHUFFLING GAIT THAT IS UNSTEADY AT TIMES. PT DID HAVE SOME CONFUSION BUT WAS ABLE TO BE REORIENTATED. PT SLEPT OFF AND ON. PT CURRENTLY SLEEPING IN NO DISTRESS. BED ALARM ON AND CALL LIGHT IN REACH.
[2018-12-19 06:31] LABS: International Normalized Ratio 2.07; Prothrombin Time Results 20.5 Sec (9.7-11.5)
--- NOTE | 2018-12-19 16:33 | NUR ---
SHIFT SUMMARY- PT AXO X2. COOPERATIVE WITH CARE THIS SHIFT. DOES NOT CALL APPROPRIATELY. IMPULSIVE. BED/CHAIR ALARM ON. DENIES PAIN. DENIES SOB. RESP E/U ON RA. DENIES N/V. SBA TO THE BATHROOM. NO OTHER SIGNIFICANT CHANGES THIS SHIFT.
--- NOTE | 2018-12-20 03:48 | NUR ---
SHIFT SUMMARY PT HAS BEEN COOPERATIVE T/O SHIFT. PT DOES FORGET LIMITATIONS AND GETS OUT OF BED. LATER IN SHIFT PT BECAME MORE UNSTEADY AND REQUIRED MORE ASSISTANCE. PT HAD NO COMPLAINTS OR ISSUES NOTED. PT FAMILY VISITED EARLY IN SHIFT. PT WAS IN GOOD SPIRITS. PT DID HAVE DIFFICULTY SLEEPING DURING SHIFT. PT IS AWAKE NOW EATING A SNACK. PT IN BED, BREATHING EASY AND IN NO DISTRESS. CALL LIGHT IN REACH AND BED ALARM ON.
[2018-12-20 06:04] LABS: International Normalized Ratio 2.05; Prothrombin Time Results 20.4 Sec (9.7-11.5)
--- NOTE | 2018-12-20 07:30 | NUR ---
PT PLEASANT COOP. CONFUSED. DENIES PAIN AT THIS TIME. DOES GET OUT OF BED SPORADICLY. IMPULSIVE. H/R REG, NO MURMER NOTED. NO TELE. LUNGS CLEAR, RESP EASY, UNLABORED. ON R.A. BT X4 LAST BM NOT KNOWN BY PT.. STATES POSS YEST. INCONT. IN ATTENDS. BED IN LOW POSITION, CALL LITE IN REACH, BED ALARM ON FOR SAFETY
--- NOTE | 2018-12-20 16:19 | NUR ---
PT PLEASANT COOP. A/O TO SELF FAMILY. CONFUSED. MOSTLY REDIRECTABLE. IMPULSIVE. DENIES PAIN. AND DAUGHTER IN TO VISIT TODAY. TOOK OUT TO SEE OUTSIDE SUNSHINE. PT VERY CALM WHEN THEY WERE HERE. NO OTHER CONCERNS AT THIS TIME. BED IN LOW POSITION, BED ALRM ON FOR SAFETY
--- NOTE | 2018-12-21 03:24 | NUR ---
Shift summary: Pt was alert and oriented and answering questions appropriately at beginning of shift. Pt owning with increasing confusion since midnight. Pt has not been sleeping at all and has been up and down to bathroom every 20 minutes and seems much more shaky than he did earlier. Bladder scanner performed and I only got 51 cc so pt is not retaining.
[2018-12-21 05:41] LABS: BASOPHILS ABSOLUTE AUTO 0.04 K/mm3 (0.00-0.23); BASOPHILS PERCENT AUTO 1 % (0-2); EOSINOPHILS ABSOLUTE AUTO 0.22 K/mm3 (0.00-0.68); EOSINOPHILS PERCENT AUTO 3 % (0-6); Hemoglobin 14.7 g/dL (13.5-17.5); IMMATURE GRAN ABSOLUTE AUTO 0.03 K/mm3 (0.00-0.10); IMMATURE GRAN PERCENT AUTO 1 % (0-1); LYMPHOCYTES ABSOLUTE AUTO 1.64 K/mm3 (0.84-5.20); LYMPHOCYTES PERCENT AUTO 25 % (21-46); MONOCYTES PERCENT AUTO 9 % (4-13); Mean Corpuscular HGB 30.6 pg (26.0-34.0); Mean Corpuscular HGB Conc 32.7 g/dL (31.5-36.5); Mean Corpuscular Volume 94 fL (80-100); NEUTROPHILS ABSOLUTE AUTO 3.97 K/mm3 (1.96-9.15); NEUTROPHILS PERCENT AUTO 61 % (41-73); Platelet Count 208 K/mm3 (150-400); RDW Standard Deviation 41.8 fL (35.1-46.3)
[2018-12-21 05:52] LABS: International Normalized Ratio 2.22; Prothrombin Time Results 21.9 Sec (9.7-11.5)
[2018-12-21 06:13] LABS: Anion Gap 4 mmol/L (6-16); Blood Urea Nitrogen 32 mg/dL (8-24); Bun/Creatinine Ratio 50.2 (12.0-20.0); CO2, Blood 32 mmol/L (21-32); Calcium, Blood 9.3 mg/dL (8.5-10.1); Chloride, Blood 100 mmol/L (98-108); Creatinine, Blood 0.64 mg/dL (0.60-1.20); Glomerular Filtration Rate >60 (60-); Glucose, Blood 120 mg/dL (70-99); Potassium, Blood 4.4 mmol/L (3.5-5.5); Sodium, Blood 136 mmol/L (136-145)
--- NOTE | 2018-12-21 11:20 | NUR ---
PT HAS BEEN CONFUSED/DISORIENTED @ X'S AGITATED. CALLING OUT FOR PERSONS WHO ARE NOT HERE. GETS UP W/O CALLING FOR ASSIST, SETTING OFF ALARMS. ATTEMPTS TO REASSURE, REORIENT UNSUCCESSFUL. PRN SEROQUEL 25 MG GIVEN FOR ANXIETY/AGITATION HOWEVER @ THIS TIME MINIMAL EFFECT.
--- NOTE | 2018-12-21 14:46 | NUR ---
SUMMARY PT HAS BEEN CONFUSED/DISORIENTED/FORGETFUL T/O DAY, HX DEMENTIA. THIS AM HE BECAME AGITATED, TEAR HIS ROBE, THROW HIS ELECTRIC RAZOR, YELL & KICK ON BED. CONTINUOSLY GETTING UP W/O ASSIST SETTING OFF ALARMS. GAVE PRN SERAQUEL WITH LITTLE EFFECT. FAMILY CAME IN FOR A FEW MINUTES, STATE PT SEEMS MORE CONFUSED THAN USUAL HOWEVER THEY ARE UNABLE TO SIT WITH HIM @ THIS TIME. PT HAS CALMED SOMEWHAT SINCE VISIT. HE CONTINUES TO GET UP W/O ASSIST HOWEVER AGITATION DECREASED. GAIT SOMEWHAT UNSTEADY, HIGH FALL RISK, CONTINUE TO USE ALARMS & CLOSE MX. CONTINUE TO REORIENT/REASSURE/REDIRECT. VSS.
--- NOTE | 2018-12-21 20:59 | NUR ---
PT IS RESTLESS, INCREASING AGITATION. PT HAS BEEN MEDICATED FOR AGITATION PER ORDER. PT REPEATEDLY GETTING OOB TO WANDER AROUND HIS ROOM/GO TO BATHROOM. PT IS UNSTEADY ON HIS FEET. WILL CONTINUE TO MONITOR.
--- NOTE | 2018-12-21 22:09 | NUR ---
PT IS RESTLESS, WANDERING AROUND IN HIS ROOM, RESISTANT TO REDIRECTION EVEN FROM 2 STAFF MEMBERS, INCREASING AGITATION/THREAT OF VIOLENCE. PT HAS BEEN MEDICATED PER ORDER W/OUT POSITIVE OUTCOME SO FAR. PT HAS BEEN PLACED IN A TAMANNA VEST RESTRAINT FOR HIS PROTECTION. MD ORDER RECEIVED VIA TELEPHONE. NO NEW ORDERS FOR ADDITIONAL MEDICATION AT THIS TIME. WILL CONTINUE TO MONITOR.
--- NOTE | 2018-12-22 04:43 | NUR ---
VSS, AFEBRILE, CONFUSED, WORD SALAD, IMPULSIVE, VEST RESTRAINT TO PREVENT FALLS, PT CALMED DOWN ONCE HE WAS PUT INTO THE LOUNGE CHAIR IN THE HALLWAY WHERE THE NURSES DO CHARTING. PT DOES NOT LIKE TO BE ALONE, AND HIS BEHAVIORS ESCULATE WHEN OTHERS ARE NOT CLOSE BY. NO COMPLAINTS. NO SIGNIFICANT CHANGES NOTED. WILL REPORT TO ON-COMING SHIFT.
[2018-12-22 05:33] LABS: International Normalized Ratio 2.24; Prothrombin Time Results 22.1 Sec (9.7-11.5)
--- NOTE | 2018-12-22 16:56 | NUR ---
SUMMARY PT IN VEST RESTRAINT @ ONSET OF SHIFT D/T HIGH CONFUSION, UNSTEADY GAIT, INABILITY TO FOLLOW REDIRECTION, CONFUSION & AGITATION. CALLED PT'S TO NOTIFY & SHE SAID SHE WAS NOT SURPRISED D/T BEHAVIOR LAST NOC WHILE SHE WAS @ HOSP. PT DAUGHTER CAME IN TO SIT WITH HIM THIS AM & STAY UNTIL DR SUÁREZ ROUND, DISCUSS MEDICATION TX, STOP HALDOL & ORDER BENADRYL 50MG X1 & 25MG Q8PRN TO PROMOTE SLEEP HOWEVER UNEFFECTIVE YET. PT HAS NOT SLEPT FOR NEARLY 36HRS. HE IS RESTLESS, CONFUSED, SPEECH @ X'S GARBLED & NONSENSICAL, GAIT SHUFFLING & UNSTEADY, CONTINUALLY ATTEMPTING TO GET UP & WANDER, HIGH FALL RISK. IN TO SIT WITH HIM & ENCOURAGE SLEEP HOWEVER W/O SUCCESS. FAMILY FATIGUED & DISTRAUGHT, REASSURANCE & SUPPORT PROVIDED. RESTRAINTS CONTINUE @ THIS TIME. VSS.
--- NOTE | 2018-12-23 04:41 | NUR ---
0030 PATIENT HALLUCINATING; PULLING THINGS TOWARDS HIS BODY THAT ARE NOT THERE, TALKING TO PERSONS THAT WERE NOT THERE. UPON READING PREVIOUS NOTES THIS BEHAVIOR IS NOT NEW TO PATIENT.
--- NOTE | 2018-12-23 04:45 | NUR ---
SHIFT SUMMARY NO ACUTE CHANGES OVERNIGHT. REMAINS IN TAMANNA VEST RESTRAINT FOR SAFETY PATIENT IS A HIGH FALL RISK; IMPULSIVE WITH AN UNSTEADY GAIT. HALLUCINATIONS THROUGHOUT THE NIGHT (SEE PREV RN NOTE). A COUPLE INCIDENCES PATIENT NEEDED MORE THAN 2 CAREGIVERS FOR CHANGE PATIENT BECAME AGITATED AND AGGRESSIVE. APPEARED TO REST FOR A FEW HOURS BUT NO REAL SLEEP NOTED. VSS/AFEBRILE. WCTM. BED IN LOWEST POSITION. ALARM ON. SIDE RAILS UP X3. CALL LIGHT IN REACH. REPORT TO ONCOMING RN.
[2018-12-23 05:40] LABS: Prothrombin Time Results 19.9 Sec (9.7-11.5)
--- NOTE | 2018-12-23 07:00 | NUR ---
ASSUMED CARE OF PT- PT APPEARS COMPLETELY UNAWARE OF PEOPLE IN THE ROOM. BEDSIDE REPORT COMPLETED WITH NIGHT REBECCA ROSSI. PT SEEMS TO BE REPEATEDLY STARTLING AND SHAKING WITH TREMMORS, PT WARM TO TOUCH, TAMANNA VEST IN PLACE WITH THREE SIDERAILS. PT HAS SCATTERED BRUISING ON EXTREMITIES POSSIBLY D/T HITTING THE SIDERAILS DURRING TREMMORS. PT UNABLE TO COMMUNICATE WITH STAFF. WILL ASSESS AND CTM.
--- NOTE | 2018-12-23 10:00 | NUR ---
PT FAMILY AT THE BEDSIDE VERY CONCERNED ABOUT PT JERKING MOTIONS AND TREMMORS. NO MORNING MEDS GIVEN D/T PT BEING UNAWARE, UNABLE TO FOLLOW DIRECTIONS AND NONRESPONSIVE, ASPIRATION RISK. SPOKE WITH FAMILY, PLACED SEIZURE PADS ON ALL RAILINGS TO PREVENT PT FROM HARMING HIMSELF BY HITTING THE RAILINGS. FAMILY STATED THE PT HAS NOT SLEPT IN DAYS, PER REPORT FROM NIGHT REBECCA ROSSI THIS MORNING THIS IS CORRECT. SPOKE TO DR ABURTO ON THE PHONE AND SOME MEDS WERE CHANGED, SEE EMAR FOR DETAILS. WILL SPEAK TO DR SUÁREZ.
--- NOTE | 2018-12-23 11:30 | NUR ---
SPOKE TO DR SUÁREZ AND RECIEVED AN ORDER FOR PERIPHERAL IV AND IV ATIVAN AND BENADRYL WELL A SWALLOW EVAL. CALLED NUCLEAR MEDICINE TECH ALEX FOR ASSISTANCE PLACING THE IV PT IS JERKING AND SHAKING UNCONTROLABLY. ORDER RECIEVED FOR WRIST RESTRAINTS TO PROTECT THE IV AND 4 SIDE RAILS TO PREVENT PT FROM FALLING OUT OF THE BED. FAMILY AWARE OF THIS AND PRESENT FOR THE EVENT. PT MEDICATED WITH IV ATIVAN AND BENADRYL PER EMAR, SEE EMAR FOR DETAILS.
--- NOTE | 2018-12-23 15:45 | NUR ---
PT SLEEPING SOUNDLY- CALLED AND SPOKE TO DR ABURTO ABOUT PT RECENT CHANGES AND DR SUÁREZ'S REQUEST THAT HE COME TO SEE THE PT. DR ABURTO WILL SPEAK TO DR SUÁREZ.
[2018-12-23 16:35] LABS: BASOPHILS ABSOLUTE AUTO 0.04 K/mm3 (0.00-0.23); BASOPHILS PERCENT AUTO 1 % (0-2); EOSINOPHILS ABSOLUTE AUTO 0.18 K/mm3 (0.00-0.68); EOSINOPHILS PERCENT AUTO 2 % (0-6); Hemoglobin 14.6 g/dL (13.5-17.5); IMMATURE GRAN ABSOLUTE AUTO 0.03 K/mm3 (0.00-0.10); IMMATURE GRAN PERCENT AUTO 0 % (0-1); LYMPHOCYTES ABSOLUTE AUTO 1.01 K/mm3 (0.84-5.20); LYMPHOCYTES PERCENT AUTO 14 % (21-46); MONOCYTES ABSOLUTE AUTO 0.72 K/mm3 (0.16-1.47); MONOCYTES PERCENT AUTO 10 % (4-13); Mean Corpuscular HGB 31.4 pg (26.0-34.0); Mean Corpuscular Volume 93 fL (80-100); NEUTROPHILS ABSOLUTE AUTO 5.52 K/mm3 (1.96-9.15); NEUTROPHILS PERCENT AUTO 74 % (41-73); Platelet Count 208 K/mm3 (150-400); RDW Standard Deviation 40.8 fL (35.1-46.3); Red Blood Cell Count 4.65 M/mm3 (4.30-5.90)
[2018-12-23 16:52] LABS: Alanine Aminotransfer (ALT/SGP 30 U/L (12-78); Albumin, Blood 3.7 g/dL (3.4-5.0); Albumin/Globulin Ratio 1.2 (0.8-1.8); Alk Phos 88 U/L (50-136); Anion Gap 7 mmol/L (6-16); Aspartate Aminotrans (AST/SGOT 26 U/L (12-37); Bilirubin, Total 0.9 mg/dL (0.1-1.0); Blood Urea Nitrogen 28 mg/dL (8-24); Bun/Creatinine Ratio 41.3 (12.0-20.0); CO2, Blood 29 mmol/L (21-32); Calcium, Blood 9.2 mg/dL (8.5-10.1); Chloride, Blood 101 mmol/L (98-108); Creatinine, Blood 0.68 mg/dL (0.60-1.20); Glomerular Filtration Rate >60 (60-); Glucose, Blood 170 mg/dL (70-99); Potassium, Blood 4.2 mmol/L (3.5-5.5); Sodium, Blood 137 mmol/L (136-145); Total Protein, Blood 6.7 g/dL (6.4-8.2)
--- NOTE | 2018-12-23 18:21 | NUR ---
SHIFT SUMMARY- PT HAD CHANGES T/O THE DAY, COMMUNICATED WITH FAMILY, DR ABURTO AND DR SUÁREZ WELL PALLIATIVE CARE RN JAYA. SEE PREVIOUS NOTES FOR DETAILS.
[2018-12-24 05:20] LABS: BASOPHILS ABSOLUTE AUTO 0.05 K/mm3 (0.00-0.23); BASOPHILS PERCENT AUTO 1 % (0-2); EOSINOPHILS ABSOLUTE AUTO 0.52 K/mm3 (0.00-0.68); EOSINOPHILS PERCENT AUTO 6 % (0-6); Hematocrit 46.6 % (37.0-53.0); Hemoglobin 15.1 g/dL (13.5-17.5); IMMATURE GRAN ABSOLUTE AUTO 0.03 K/mm3 (0.00-0.10); IMMATURE GRAN PERCENT AUTO 0 % (0-1); LYMPHOCYTES ABSOLUTE AUTO 1.34 K/mm3 (0.84-5.20); LYMPHOCYTES PERCENT AUTO 16 % (21-46); MONOCYTES ABSOLUTE AUTO 0.94 K/mm3 (0.16-1.47); MONOCYTES PERCENT AUTO 11 % (4-13); Mean Corpuscular HGB Conc 32.4 g/dL (31.5-36.5); NEUTROPHILS ABSOLUTE AUTO 5.56 K/mm3 (1.96-9.15); NEUTROPHILS PERCENT AUTO 66 % (41-73); Platelet Count 177 K/mm3 (150-400); RDW Coefficient Variation 11.9 % (11.7-14.2); RDW Standard Deviation 41.1 fL (35.1-46.3); Red Blood Cell Count 4.87 M/mm3 (4.30-5.90); White Blood Cell Count 8.44 K/mm3 (4.00-11.30)
[2018-12-24 05:23] LABS: Mean Corpuscular Volume 96 fL (80-100)
[2018-12-24 05:34] LABS: International Normalized Ratio 2.21; Prothrombin Time Results 21.8 Sec (9.7-11.5)
[2018-12-24 05:51] LABS: Alanine Aminotransfer (ALT/SGP 30 U/L (12-78); Albumin, Blood 3.4 g/dL (3.4-5.0); Albumin/Globulin Ratio 1.1 (0.8-1.8); Alk Phos 87 U/L (50-136); Anion Gap 8 mmol/L (6-16); Aspartate Aminotrans (AST/SGOT 24 U/L (12-37); Blood Urea Nitrogen 23 mg/dL (8-24); Bun/Creatinine Ratio 47.6 (12.0-20.0); CO2, Blood 24 mmol/L (21-32); Calcium, Blood 8.7 mg/dL (8.5-10.1); Chloride, Blood 106 mmol/L (98-108); Creatinine, Blood 0.48 mg/dL (0.60-1.20); Globulin, Blood 3.1 g/dL (2.2-4.0); Glomerular Filtration Rate >60 (60-); Glucose, Blood 123 mg/dL (70-99); Potassium, Blood 4.2 mmol/L (3.5-5.5); Sodium, Blood 138 mmol/L (136-145); Total Protein, Blood 6.5 g/dL (6.4-8.2)
[2018-12-24 05:54] LABS: Source, Urine Clean Catch
[2018-12-24 05:59] LABS: Bilirubin, Urine Neg (Neg); Blood, Urine 1+ (Neg); Glucose Qualitative, Urine Neg (Neg); Ketones, Urine 2+ (Neg); Leukocyte Esterase, Urine Neg (Neg); Nitrite, Urine Neg (Neg); Protein, Urine 2+ (Neg); Specific Gravity, Urine 1.025 (1.003-1.022); Urobilinogen, Urine NORM (Normal)
[2018-12-24 06:14] LABS: Appearance, Urine Clear (Clear); Bacteria Not Seen /hpf; Color, Urine Yellow (P-Yellow); Red Blood Cells, Urine 0-2 /hpf (0-2); Squamous Epithelial Cells Few /hpf (Few); Uric Acid Crystals Few /hpf; White Blood Cells, Urine Not Seen /hpf (0-5)
--- NOTE | 2018-12-24 06:45 | NUR ---
Rn summary: Patient has rested fairly well tonight with the Ativan. Pt started getting more restless at 2330 so Ativan 2 mg IV given with good relief. Pt has had no aggitation. Pt has tolerated wrist and carito restraints well. Pt had condom cath to collect UA. Pt voided only 90cc this am. Bladder scan for 815cc. Dr. Yang called and order for straightcath obtained. Just prior to cath, pt extremely restless and then voided in attends. Post void bladder scan for 440. Pt extremely aggitated, swearing , throwing legs over side rails. Ativan 2mg given IV. Pt repositioned, restraints readjusted, pt allowed to move extremities. Pt is aggitated, does not open his eyes. Pt did receive fluids as ordered. Oral care given. Bed alarm is on. Will continue to monitor closely. eyes
--- NOTE | 2018-12-24 08:59 | NUR ---
PT ALLOWED OUT OF RESTRAINTS ACTIVE ROM BY PATIENT TO UPPER EXTREMETIES FOR APPROXIMATELY 7 MINUTES.
--- NOTE | 2018-12-24 18:27 | NUR ---
PT. LYING QUIETLY NO NOTEABLEM CHANGES THIS SHIFT. PT. GIVEN TYLENOL AND METOPROLO CRUSHED IN WATER. ADMINISTERED WITH SYRINGE AND THEN GIVEN SIPS OF WATER FROM MED CUP. TOLERATED WELL. PT HAS BEEN VOIDING ALL DAY AND SATURATING BED EACH TIME. PT HAS HAMMER TOE ON RIGHT FOOT.
--- NOTE | 2018-12-25 05:16 | NUR ---
SHIFT SUMMARY PT HAS BEEN RESTLESS AND AGITATED, HOLLERING OUT, THIS SHIFT. ATIVAN 2 MG GIVEN X 3 DOSES. CALMS DOWN FOR 2-3 HRS AND THEN STARTS TO HOLLER OUT AGAIN. WILL CONTINUE TO MONITOR.
[2018-12-25 05:54] LABS: Alanine Aminotransfer (ALT/SGP 29 U/L (12-78); Albumin, Blood 3.2 g/dL (3.4-5.0); Alk Phos 86 U/L (50-136); Anion Gap 9 mmol/L (6-16); Aspartate Aminotrans (AST/SGOT 28 U/L (12-37); Bilirubin, Total 0.9 mg/dL (0.1-1.0); Blood Urea Nitrogen 23 mg/dL (8-24); Bun/Creatinine Ratio 48.9 (12.0-20.0); CO2, Blood 23 mmol/L (21-32); CPK Creatine Kinase 193 U/L (39-308); Calcium, Blood 8.7 mg/dL (8.5-10.1); Chloride, Blood 105 mmol/L (98-108); Creatinine, Blood 0.47 mg/dL (0.60-1.20); Globulin, Blood 3.2 g/dL (2.2-4.0); Glomerular Filtration Rate >60 (60-); Glucose, Blood 178 mg/dL (70-99); Potassium, Blood 3.9 mmol/L (3.5-5.5); Sodium, Blood 137 mmol/L (136-145); Total Protein, Blood 6.4 g/dL (6.4-8.2)
--- NOTE | 2018-12-25 18:40 | NUR ---
PT. HAS BEEN PRETTY ACTIVE TODAY EVEN WITH ATIVAN, WHEN GIVEN FIRST SMALL DRINK OF MEDS SPIT THEM IN MY FACE, WAS ABLE TO GIVE HIM THE REST AFTER ATIVAN GIVEN. PT. GIVEN 2MG IV ATIVAN AND IT DID NOT SLOW HIM DOWN THROWING LEGS OVER SIDE SQUIRMING IN BED, GRABBING AND PINCHING. NOTIFIED DR. VELAZQUEZ AND HE PUT HIM ON SCHEDULED IV ATIVAN. CONDOM CATH PLACED. COUGHS WHEN GIVEN DRINKS OF WATER.
[2018-12-26 05:24] LABS: International Normalized Ratio 2.22; Prothrombin Time Results 21.9 Sec (9.7-11.5)
--- NOTE | 2018-12-26 05:48 | NUR ---
SHIFT SUMMARY PT IV RIGHT AC INFILTRATED EARLY ON IN SHIFT. 22 G STARTED PER ALUMINA REFINERY OPERATOR WITH US MACHINE ON LEFT ARM. PT HAS BEEN CHANGED WHEN NEEDED, ORAL CARES DONE WHEN PT NOT BITING DOWN ON TOOTHETTE SPONGES. B/P AND HR ELEVATED PT SPIT OUT METOPROLOL FOR DAY NURSE. ABLE TO GIVE METOPROLOL EARLY THIS AM, DISCUSSED WITH CHARGE NURSE PRIOR TO GIVING. PT BECOMING MORE RESTLESS AGAIN THIS AM, WILL CONTINUE TO MONITOR.
--- NOTE | 2018-12-26 08:03 | NUR ---
PATIENT DID NOT EAT BREAKFAST THIS SHIFT DUE TO BEING NPO AT THIS TIME.
--- NOTE | 2018-12-26 13:06 | NUR ---
PATIENT DID NOT EAT LUNCH THIS SHIFT DUE TO BEING NPO AT THIS TIME.
--- NOTE | 2018-12-26 16:52 | NUR ---
PATIENT SLEPT THROUGHOUT THE SHIFT. AT TIMES PULLED AT LINES, BUT WAS ABLE TO CALM WITH VOICE. FAMILY AT BEDSIDE FOR MOST OF THE SHIFT. ATIVAN HELD AT FAMILY REQUEST. STARTED ON ZYPREXA AND LEXAPRO. FAMILY HOPING TO HOLD ATIVAN UNLESS ABSOULUTELY NECESSARY. SKIN INTACT, MILD REDNESS TO L FOOT AND R ARM. REMAINS IN SOFT WRIST RESTRAINTS AND TAMANNA FOR SAFETY AND TO PROTECT LINES. MEDS GIVEN DILUTED WITH SMALL AMOUNT OF WATER WITH SYRINGE. CLINIMIX RUNNING AT 125ML/HR. PATIENT INCONTIENT OF URINE/STOOL. POWERGLIDE STARTED TODAY IN L UPPER ARM. FAMILY PLANS TO STAY THE NIGHT.
--- NOTE | 2018-12-26 17:54 | NUR ---
PATIENT DID NOT EAT DINNER THIS SHIFT DUE TO BEING NPO AT THIS TIME.
[2018-12-27 05:14] LABS: International Normalized Ratio 1.93; Prothrombin Time Results 19.3 Sec (9.7-11.5)
--- NOTE | 2018-12-27 05:23 | NUR ---
shift summary PT HAS HAD GOOD NIGHT, HAS BEEN OUT OF WRIST RESTRAINTS ALL NIGHT. STILL IN TAMANNA VEST, BUT HAS NOT TRIED TO GET UP OUT OF BED. WILL CONTINUE TO MONITOR.
--- NOTE | 2018-12-27 08:21 | NUR ---
PATIENT DID NOT EAT BREAKFAST THIS SHIFT DUE TO BEING NPO AT THIS TIME.
--- NOTE | 2018-12-27 12:24 | NUR ---
PATIENT DID NOT EAT LUNCH THIS SHIFT DUE TO BEING NPO AT THIS TIME.
--- NOTE | 2018-12-27 14:50 | NUR ---
CONTINUATION OF RESTRAINTS: PER TELEPHONE ORDER OF DR VELAZQUEZ, TAMANNA AGUILAR RESTRAINT ORDER HAS BEEN CONTINUED. PATIENT ACUITY PREVENTED DOCUMENTATION UNTIL THIS TIME.
--- NOTE | 2018-12-27 17:51 | NUR ---
Clinical Visit: Pt appears very uncomfortable. He isn't as bad as when I assessed yesterday, but he is still experiencing dyspnea, agitation, anxiety, and pain. I spoke to the nurse, who told me that pt's family is still refusing to have ativan given. is at bedside, along with some family friends. Daughter, Reshma, has left for today. requests another palliative visit tomorrow so that the decision is made with Reshma. is confident that she will be putting pt on comfort care tomorrow as soon as that conversation takes place. She does not want to discuss anything further with her friends present in the room.
--- NOTE | 2018-12-27 17:53 | NUR ---
PATIENT DID NOT EAT DINNER THIS SHIFT DUE TO BEING NPO AT THIS TIME.
--- NOTE | 2018-12-27 18:01 | NUR ---
Initial Visit: Pt is seen today to determine goals. Pt appears very uncomfortable. He is writhing in bed and his face is in a grimmace. is at bedside. Discussed prior function, and he is much different now than at baseline. Pt has had a long lenth of stay, required consult from behavioural medicine. is not allowing nursing to treat with ativan. He has is scheduled. She is still hopeful that this is a transient illness and feels that medication is not helpful. She wants him to "detox" from medications. She would like to talk further with her daughter present. Daughter is in the medical field and values her input. She has additional questions about placement. She has been in contact with social service technician. Will remain available. Pt is very uncomfortable,however, family is not allowing medications.
--- NOTE | 2018-12-27 19:12 | NUR ---
SHIFT SUMMARY: NO ACUTE CHANGES TO REPORT THIS SHIFT. PT LETHARGIC/DROWSY; NOT ORIENTED. HX DEMENTIA/CVAs; AGITATED; TAMANNA VEST IN PLACE. PT NPO R/T ASPIRATION. CLINIMIX @ 125; POC GLUCOSE Q6H. PT ON BEDREST. AWAITING PALLIATIVE CARE CONSULT. REPORT GIVEN TO ONCOMING RN.
--- NOTE | 2018-12-28 07:03 | NUR ---
SHIFT SUMMARY PT VERY LETHARGIC, NONVERBAL DOESN'T TRY TO INTERACT OR COMMUNICATE. INCONT OF URINE Q2HR TURNS. TAMANNA VEST STILL IN USE. NO IV ATIVAN NEEDED. SCD'S IN USE. HE WAS ABLE TO REST T/O NIGHT.
--- NOTE | 2018-12-28 07:08 | NUR ---
ASSUMED CARE OF PATIENT FROM NIGHT REBECCA MARKS WITH [facility]. PT IS RESTING IN BED, NO FAMILY AT BEDSIDE. PT VERY STIFF, NO PO MEDS GIVEN PER PHYSICIAN ORDER, ASPIRATION RISK, AND NPO. SEIZURE PADS IN PLACE AND ALL 4 RAILS UP. VEST RESTRAINTS IN PLACE TO PREVENT HARM TO SELF. WILL CONTINUE TO MONITOR.
--- NOTE | 2018-12-28 17:31 | NUR ---
Shift Summary Patient has been drowsy t/o shift, not oriented. Hx of Dementia/CVA's. [place] vest has been renewed and in place. Pt NPO r/t aspiration, no PO meds per physician order. Medicated per EMAR 1x for mild fever of 99.2 and 1x for pain. Ativan has been held per family request. Will continue to monitor until report given to night nurse.
--- NOTE | 2018-12-28 18:28 | NUR ---
STUDENT HAD PT CARE TODAY, PLEASE REFER TO STUDENT NOTES FOR SHIFT SUMMARY.
--- NOTE | 2018-12-28 20:52 | NUR ---
Multiple visits today to review plan of care and patient assessment. Had family meeting zeferino with son after he arrived. Review of his care over the past six months and how he has been progressing. Review of his physician appointments and care. Pt has been a long standing pt of Dr. Langston. They are also of the some sonia and presybeterian. They feel after review that hospice is best choice. They had many questions about hydration and IV nutrition. They will speak with doctor about when to stop hydration and transiton to comfort care or hospice. Suggested they speak with Dr Langston for support on Sunday. Suggest [facility] since pt has been in his service. They are looking at facilities as they feel home will not work for mother. They understand cost of his care needs. will update family day care worker.
--- NOTE | 2018-12-29 06:40 | NUR ---
SHIFT SUMMARY PT NONVERBAL DOESN'T REALLY RESPOND TO VERBAL STIMULI. TYLENOL SUPP GIVEN FOR PAIN/COMFORT. DID NOT REQUIRE ANY ATIVAN. GRABS ONTO THINGS AND CLINCHES HIS HANDS TOGETHER, FIDDLES WITH HIS VEST T/O NOC. STILL IN TAMANNA VEST HAS NOT ATTEMPTED TO GET OOB. INCONT OF URINE. BEEN QUIET/SLEEPING T/O NIGHT. BED ALARM IN USE.
--- NOTE | 2018-12-29 13:38 | NUR ---
PT WITH INCREASING AGITATION, DEROBING, MOANING, GRABBING AT LINENS, INCONSOLABLE. ATIVAN 2MG GIVEN. AT BEDSIDE AND AGREES WITH PLAN OF CARE.
--- NOTE | 2018-12-29 17:12 | NUR ---
PT IS LETHARGIC AND NOT ORIENTATED, PT RESTED FOR MOST OF THE SHIFT. PT BECAME AGITATED AROUND LUNCH TIME AND WAS MEDICATED PER ORDERS, WHICH RELIVED HIS SYMPTOMS. PT'S FAMILY VISITED PERIODICALLY THROUGHOUT THE SHIFT. DID NOT OBSERVE SIGNS OF DISTRESS OR DISCOMFORT.
--- NOTE | 2018-12-30 06:10 | NUR ---
SHIFT SUMMARY PT NONVERBAL FOR THE MOST PART. STARTED TO YELL OUT MOAN VERY LOUDLY MEDICATED PER AYE De Leon ATIVAN. HE WAS ABLE TO SLEEP ON AND OFF AFTER THAT. INCONT OF URINE. Q2HR TURNS.
--- NOTE | 2018-12-30 11:33 | NUR ---
ASSUMED CARE OF PATIENT, RECEIVED REPORT FROM JOSE ELIAS FERNANDEZ. PT IS SLEEPING AT THIS TIME, NO SIGNS OF AGITATION. NS @ 100 mls/hr.
--- NOTE | 2018-12-30 12:44 | NUR ---
Left message to Dr. Gonzalez Re: Family wanting to discuss care decisions regarding patient.
--- NOTE | 2018-12-30 17:54 | NUR ---
Shift Summary A/O x 2 to self and family. TQ2, incontinent, attends in place. Family requests to hold Ativan unless severely agitated and "absolutely no physical restraints" to be used on patient. Family sts chemical restraints are preferred over physical restraints. Family brought in popsicles for pt and assisted with eating it. VSS, no other acute changes this shift.
--- NOTE | 2018-12-30 19:21 | NUR ---
Extensive family meeting. Review of diversion suggested they start putting patients glasses on and try differnt thing to put in his hands to tie. Pt did fly tying for many years. Facilitated to review the trajectory of his disease to help her with acceptance. She is struggling with the life style and soical changes and anticipatory grief and weather she should keep her house. Speaking with his physician has helped. Dr king has offered decisional support for her. sky follow up with daughter
--- NOTE | 2018-12-31 03:59 | NUR ---
SHIFT SUMMARY: PT IS RESPONSIVE TO PAINFUL STIMULI, NO EYE OPENING. PT INCONTINENT THROUGHOUT THE NIGHT, CHANGED NEEDED. PT TURNED Q2H. PT SHOWED NO S/S FOR PAIN, NAUSEA, VOMITING, OR SOB, NO PRN MEDICATIONS GIVEN. BED IN LOW POSITION, CALL LIGHT WITHIN REACH, BED ALARM SET. WILL REPORT TO DAY NURSE.
--- NOTE | 2018-12-31 11:50 | NUR ---
COMFORT CARE ASSESSMENT AND VISIT. PT is supine in bed with HOB elevated. He has an attends on but no other clothing. His son is reading out loud to him from a [employer] magazine. is at bedside. As soon as I introduced myself and attempted to assess pt, ushered me out of the room. I spoke to her and pt's RN re: transition to medications that would be used after d/c. Recommend d/c of IV ativan and switching it to SL administration. is very reluctant to allow medications for pain and wants the ativan used sparingly, in the evening only. and RN agree that Aspirin suppository may not be helpful. states tylenol being given is adequate for foot pain from long ago crush injury to foot. I was not able to do a full assessment. RN to discuss sl ativan and d/c of aspirin supp with Dr when she rounds. I spent time with , encouraged their bedside presence, reading and reminiscing. She states many family members have visited and also been helping her with yard work at home. [facility] facility staff have visited pt this am. Aerotriang[employer] Specialist working with them on dc planning to [facility] per previous notes.
--- NOTE | 2019-01-01 05:55 | NUR ---
SHIFT SUMMARY PT IS A 73 Y/O MALE, ADMITTED FOR INCREASED AGITATION. CURRENTLY ON COMFORT CARE. PT HAS BEEN INTERMITTENTLY AWARE DURING THE NIGHT, AND WAS ABLE TO NOD YES TO A QUESTION ABOUT HAVING PAIN. PT WAS MEDICATED FOR PAIN ONCE WITH PRN TYLENOL. NO S/S OF NAUSEA OR SOB. THE PT'S POWERGLIDE WAS FOUND INTACT IN HIS BED, WITH NO SIGNS OF BLEEDING. NO OTHER ACUTE CHANGES IN PT CONDITION NOTED. WILL CONTINUE TO MONITOR AND TREAT PER EMAR.
--- NOTE | 2019-01-01 14:03 | NUR ---
PAL CARE COMFORT CARE ASSESSMENT - Pt's family remain at bedside and are able to feed him bites safely today. They feel the tyleonl is managing his pain well. Ativan being used once daily in the evening is also working well for his anxiety per . Plan remains in place and is progressing per CM work for d/c to [facility] with [facility] tomorrow. Pt appears comfortable and to be enjoying the attention of his family. Increased wet attends with increased PO intake in past 24 hrs. No IV site at this time and pt has rxs ordered PO, SL or IA with good results. Pt with eyes closed t/o my visit.
--- NOTE | 2019-01-01 18:37 | NUR ---
SHIFT SUMMARY PT REPOSITIONED FOR COMFORT. FAMILY AT BEDSIDE ON AND OFF THROUGH DAY. SUPPOSITORY GIVEN EARLIER FOR PT FEELING HE NEEDS TO HAVE A BM. FAMILY ASKED TYLENOL GIVEN ORALLY AND PT ABLE TO SWALLOW AFTER CHEWING MED WITH CUSTARD. BEDBATH GIVEN AND PT TOLERATED WELL.
--- NOTE | 2019-01-02 | NUR ---
PT LYING COMFORTABLY IN BED. NO NEEDS AT THIS TIME.
--- NOTE | 2019-01-02 03:52 | NUR ---
NOC SHIFT SUMMARY PT HAS SLEPT MOST OF SHIFT. HE DID HAVE A LARGE BM THIS NIGHT. HE DID COMPLAINE ONCE OF PAIN. TREATED EFFECTIVELY PER EMAR. NO ACUTE CHANGES NOTED THIS NIGHT. PT APPEARS COMFORTALBLE.
--- NOTE | 2019-01-02 07:19 | NUR ---
PT APPEARS COMFORTABLE
[2019-01-02] MEDS ORDERED: Feverall650 MG PR (08:57)
[2019-01-02] MEDS ORDERED: Acetaminophen325 M1 PO (08:58)
[2019-01-02] MEDS ORDERED: ALBU2.5V5 INH (08:59)
[2019-01-02] MEDS ORDERED: ATROPINE 0.01%-10 ML SL (08:59)
[2019-01-02] MEDS ORDERED: ESCI20 PO (09:00)
[2019-01-02] MEDS ORDERED: BISA10S PR (09:00)
[2019-01-02] MEDS ORDERED: LORA2L PO (09:01)
[2019-01-02] MEDS ORDERED: Transderm-Scop1 EACH TOP (09:01)
--- NOTE | 2019-01-02 11:50 | NUR ---
[facility] HERE TO PICK PT UP AT 1130 BY RECLINER W/C. 2 PERSON SBA TRANSFER TO W/C. ABLE TO STAND AND TAKE A COUPLE STEPS TO CHAIR AND THEN NEEDED ENCOURAGEMENT TO SIT. AT BEDSIDE TILL HE LEFT. NO S/S OF PAIN PRIOR TO LEAVING TO [facility]. PAPERWORK WITH TRANSPORT ASSIST ON LEAVING.
== END 2019-01-02 11:32 | disposition hospice, home (50) ==
LOC: ER 14:28 → EOR 14:29 → ER 14:29 → EOR 14:29 → MEDS 14:29 → EOR 14:30 → MEDS 14:30 → EOR 12-03 17:03 → MEDS 12-03 17:03 → ENPENDDIS 01-02 08:51 → MEDS 01-02 11:32
PROVIDERS: Emergency Medicine; Family Medicine; Internal Medicine; Pharmacist; ADMIT Internal Medicine
DX: F01.51 Vascular dementia, unspecified severity, with behavioral disturbance (principal); R41.0 Disorientation, unspecified; E11.9 Type 2 diabetes mellitus without complications; I10 Essential (primary) hypertension; M10.9 Gout, unspecified; I48.91 Unspecified atrial fibrillation; Z86.73 Personal history of transient ischemic attack (TIA), and cerebral infarction without residual deficits; Z88.0 Allergy status to penicillin; Z88.2 Allergy status to sulfonamides; Z88.6 Allergy status to analgesic agent; Z86.59 Personal history of other mental and behavioral disorders
CPT/HCPCS: 36415; 70450; 73630; 80048; 80053; 81001; 82550; 82803; 82947; 84443; 84550; 85025; 85027; 85610; 87077; 87086; 87186; 92523; 93971; 94760; 96360; 96361; 96372; 99285-25; C1751; G0378; G0480; J1200; J1630; J2060; J7030; Q0163; Q3014

== ENCOUNTER → 2019-03-03 | Outpatient (CLI) | payer OTHER, MEDICARE ==
[~2019-03-03] MED LIST changes: +ALBU2.5V5 INH; +ASPI81CH PO; +ATROPINE 0.01%-10 ML SL; +Acetaminophen325 M1 PO; +BISA10S PR; +DONE5 PO; +ESCI20 PO; +FIBER GUMMIES2 GM PO; +FISH OIL 1,2001 EACH PO; +Feverall650 MG PR; +GNP STOOL SOFT PO; +Jantoven1 MG PO; +Jantoven5 MG PO; +LORA2L PO; +METFORMIN HCL500 MG PO; +Transderm-Scop1 EACH TOP; +VITAMIN B122500 MCG PO; +VITAMIN C500 M1 PO
== END | disposition home or self-care (01) ==
LOC: LAB 14:30 → LAB SHORT 14:30
DX: L03.90 Cellulitis, unspecified (principal)
CPT/HCPCS: 87070; 87077; 87147; 87186; 87205

== ENCOUNTER → 2019-04-04 | Outpatient (CLI) | payer MEDICARE, OTHER | END | disposition home or self-care (01) | LOC: LAB HH 13:56 | DX: L03.115 Cellulitis of right lower limb (principal) | CPT/HCPCS: 87070; 87077; 87147; 87186; 87205 ==